=== PATIENT | female | born 1965 | race Caucasian/White ===

== ENCOUNTER 2024-03-13 21:07 | Emergency (ER) | payer BC ==
[2024-03-14] VITALS: TEMP 98.9
[2024-03-14 00:06] VITALS: RESP 18
[2024-03-14] MEDS ORDERED: NORCO 10-325 MG ONE (00:11)
[2024-03-14] MEDS: NORCO 10-325 MG PO ONE (00:12)
--- NOTE | 2024-03-14 02:23 | XRAY ---
CLINICAL HISTORY: fall COMPARISON: None. 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 No acute osseous abnormality is noted. No joint effusion in the suprapatellar bursa. Soft tissues appear unremarkable. IMPRESSION: No definite fracture or dislocation. DISCLAIMER:A subtle bone abnormality or fracture may not be readily apparent on x-rays, thus clinical correlation and further imaging including follow up CT, MRI, or follow up x-rays are advised as needed. Electronically Signed by: Maggi Singh MD. (03/14/2024 02:19:23 EDT)
--- NOTE | 2024-03-14 02:33 | XRAY ---
CLINICAL HISTORY: FALL COMPARISON: None TECHNIQUE: X-ray right humerus AP lateral and oblique views FINDINGS: A comminuted fracture is seen involving the right Humeral head. Reduced bone density Mild osteoarthritis changes Are seen involving the acromioclavicular joint. Soft tissue swelling is noted IMPRESSION: A comminuted fracture is seen involving the right Humeral head. DISCLAIMER:A subtle bone abnormality or fracture may not be readily apparent on x-rays, thus clinical correlation and further imaging including follow up CT, MRI, or follow up x-rays are advised as needed.[facility][1] ER was called at [phone] at 2:25 AM EST, 03/14/2024 and results were verbally communicated to Dr. Valenzuela. Electronically Signed by: Maggi Singh MD. (03/14/2024 02:28:55 EDT)
--- NOTE | 2024-03-14 02:37 | ERPHSYRPT ---
- History of Present Illness Time Seen by Provider: 03/13/24 23:25 Source: patient, family Exam Limitations: no limitations Patient Subjective Stated Complaint: pt reports that at approx 2014 this evening she was going into her house via step that is approx 1.5ft in height, caught the toe of her slide on shoe, resulting in a fall forward landing on her knees. reports no pain with exception of abrasions to bilat legs but states that in trying to catch herself her right shoulder was hyperextended and internally rotated along with her torso being twisted to right. complaint of pain to right shoulder, right scapula, right armpit, right torso, and right medial upper arm. Triage Nursing Assessment: pt brought to room 8 via wheelchair and transfered self onto ED cart with minimal SBA only. pt is alert and oriented times three, able to speak in complete sentences, able to move all extremities (limited to right arm due to pain), and with resp even and unlabored. pt denies hitting or head or any other body part except bilat knees and lower legs (see notation below for sites of abrasions). pt denies losing conciousness, hitting head, being lightheadedness or dizziness before, during, or since fall. complaint of pain to right shoulder, right scapula, right armpit, right torso, and right medial upper arm. states pain is 10/10, constant, ache, sharp, dull, throb that has been continuous since fall. right radial pulse is palpable, no edema noted, right upper extremity with normal color, cap refill, and sensation. denies numbness or tingling. Physician History: Patient is here for right arm pain, 10 out of 10. Patient states that she had a mechanical fall earlier tonight. States that she fell forward through her doorstep. She complains of some right upper back pain, left knee pain. Bilateral lower leg abrasions. Patient is not on a blood thinner, no loss of consciousness. She has not taken any Tylenol or ibuprofen prior to arrival. Pain radiates down the right arm. However pain mostly stops around the elbow. She able to fully move her hand, no wrist pain, other injuries. Allergies/Adverse Reactions: methylprednisolone [From Solu-Medrol] Allergy (Severe, Verified 03/13/24 23:31) Hives sumatriptan [From Imitrex] Allergy (Severe, Verified 03/13/24 23:31) Difficulty Swallowing all antibiotics except amoxicillin Allergy (Severe, Uncoded 03/13/24 23:31) Hives Home Medications: No Reportable Medications [No Reported Medications] 03/13/24 [History] Hx Tetanus, Diphtheria Vaccination/Date Given: Yes Hx Influenza Vaccination/Date Given: No Hx Pneumococcal Vaccination/Date Given: No Immunizations Up to Date: No Travel Risk - International Travel Have you traveled outside of the country in past 3 weeks: No - Emerging Infectious Disease Are you exhibiting symptoms associated with any current EIDs: No - Past Medical History Pertinent Past Medical History: Yes Neurological History: Stroke ENT History: No Pertinent History Cardiac History: No Pertinent History Respiratory History: No Pertinent History Endocrine Medical History: No Pertinent History Musculoskeletal History: No Pertinent History GI Medical History: No Pertinent History History: No Pertinent History Psycho-Social History: No Pertinent History Female Reproductive Disorders: No Pertinent History - Past Surgical History Past Surgical History: Yes Neuro Surgical History: No Pertinent History Cardiac: No Pertinent History Respiratory: No Pertinent History Gastrointestinal: No Pertinent History Genitourinary: No Pertinent History Musculoskeletal: Orthopedic Surgery Female Surgical History: No Pertinent History Other Surgical History: bilat knee meniscus repair - Social History Smoking Status: Former smoker Exposure to second hand smoke: No Drug Use: none Patient Lives Alone: No - Nursing Vital Signs Nursing Vital Signs: Initial Vital Signs Pulse Rate 98 H 03/13/24 23:31 Respiratory Rate 20 03/13/24 23:31 Blood Pressure 156/78 03/13/24 23:31 O2 Sat by Pulse Oximetry 96 03/13/24 23:31 Pain Scale Pain Intensity 2 - Physical Exam SpO2 Interpretation: normal SpO2: 95 Comments: 03/14/24 02:48 Review of Systems Constitutional: Negative for fever. HENT: Negative for congestion. Respiratory: Negative for shortness of breath. Cardiovascular: Negative for chest pain. Gastrointestinal: Negative for abdominal pain. Genitourinary: Negative for dysuria. Musculoskeletal: Negative for back pain. Skin: Negative for rash. Neurological: Negative for headaches. Psychiatric/Behavioral: Negative for behavioral problems. All other systems reviewed and are negative. Physical Exam Vitals signs and nursing note reviewed. Constitutional: Appearance: Patient is well-developed. HENT: Head: Normocephalic and atraumatic. Eyes: Conjunctiva/sclera: Conjunctivae normal. Neck: Musculoskeletal: Normal range of motion. Trachea: No tracheal deviation. Cardiovascular: Rate and Rhythm: Normal rate. Pulmonary: Effort: Pulmonary effort is normal. No respiratory distress. Abdominal: Palpations: Abdomen is soft. Musculoskeletal: General: Right shoulder tenderness, right scapula tenderness, right elbow tenderness. Significantly right shoulder though. Most likely humeral head fracture based on physical exam. No midline C-spine, T-spine, L-spine tenderness. No step-offs no deformities. Abrasions over bilateral lower extremities. However worst abrasions over left knee with some minimal tenderness to the left knee. Plan for x-ray of left knee. Sensation intact, 2+ capillary refill, 2 point tactile discrimination intact. Range of motion and strength due to pain. Compartments are soft, nontender. Overlying skin shows no tenting, bruising, ecchymosis. Distal pulses throughout Skin: General: Skin is warm and dry. Neurological/ Psychiatric: Mental Status: Mental status, behavior, interaction with environment is appropriate for patient's age and condition - Course Nursing assessment & vital signs reviewed: Yes Ordered Tests: Active Orders 24 hr Category Date Time Status CHEST 2 VIEWS (PA AND LAT) Stat Exams 03/14/24 00:57 Completed ELBOW (2 VIEW) Stat Exams 03/14/24 00:57 Completed HUMERUS Stat Exams 03/14/24 00:57 Completed KNEE (3 VIEWS) Stat Exams 03/14/24 00:01 Completed SCAPULA Stat Exams 03/14/24 00:57 Completed SHOULDER Stat Exams 03/14/24 01:00 Completed Medication Summary Discontinued Medications Generic Name Dose Route Start Last Admin Trade Name Kristin PRN Reason Stop Dose Admin Hydrocodone Bitart/Acetaminophen 2 tablet 03/14/24 00:00 03/14/24 00:12 Hydrocodone/Acetamin 10-325 Mg Tablet PO 03/14/24 00:01 2 tablet ONCE ONE Administration Hydrocodone Bitart/Acetaminophen Confirm 03/14/24 00:11 Hydrocodone/Acetamin 10-325 Mg Tablet Administered 03/14/24 00:12 Dose 2 tablet .ROUTE .STK-MED ONE - Progress Progress: improved Progress Note: 03/14/24 02:50 Plan for oral pain medication for patient. X-rays of significantly tender areas. Up-to-date on tetanus shot. 03/14/24 03:11 X-rays only significant for a right humeral head fracture, comminuted. Patient placed in a shoulder sling. Patient will follow-up with orthopedic surgery this week. Appropriate numbers given to patient and patient's sister. Pain significantly improved with oral [place] here. Counseled pt/family regarding: diagnosis, need for follow-up, rad results Medical Desision Making - Diagnostic Testing Radiological Interpretation: Interpreted by me (Right humeral head fracture) - Departure Departure Disposition: Home Clinical Impression: Fracture of humeral head, right, closed Condition: Stable Critical Care Time: No Referrals: DOCTOR,NO FAMILY [Primary Care Provider] - Follow up/PCP as directed Instructions: Preventing falls in adults, Shoulder Fracture Forms: Ortho Referral
--- NOTE | 2024-03-14 02:43 | XRAY ---
CLINICAL HISTORY: FALL COMPARISON: None TECHNIQUE: X-ray scapula showing Y views. FINDINGS: No definite fracture is seen involving the scapula. A comminuted fracture is seen involving the right Humeral head. Reduced bone density Mild osteoarthritis changes Are seen involving the acromioclavicular joint. Soft tissue swelling is noted IMPRESSION: No definite fracture is seen involving the scapula. A comminuted fracture is seen involving the right Humeral head. DISCLAIMER:A subtle bone abnormality or fracture may not be readily apparent on x-rays, thus clinical correlation and further imaging including follow up CT, MRI, or follow up x-rays are advised as needed.[facility] ER was called at [phone] at 2:25 AM EST, 03/14/2024 and results were verbally communicated to Dr. Valenzuela. Electronically Signed by: Maggi Singh MD. (03/14/2024 02:39:43 EDT)
--- NOTE | 2024-03-14 02:45 | XRAY ---
CLINICAL HISTORY: FALL COMPARISON: None. TECHNIQUE: X-ray of the right shoulder joint AP external and internal and lateral views. FINDINGS: A comminuted fracture is seen involving the right Humeral head. Reduced bone density Mild osteoarthritis changes Are seen involving the acromioclavicular joint. Soft tissue swelling is noted IMPRESSION: A comminuted fracture is seen involving the right Humeral head. DISCLAIMER:A subtle bone abnormality or fracture may not be readily apparent on x-rays, thus clinical correlation and further imaging including follow up CT, MRI, or follow up x-rays are advised as needed.[facility] ER was called at [phone] at 2:25 AM EST, 03/14/2024 and results were verbally communicated to Dr. Valenzuela. Electronically Signed by: Maggi Singh MD. (03/14/2024 02:41:46 EDT)
--- NOTE | 2024-03-14 02:47 | XRAY ---
CLINICAL HISTORY: FALL COMPARISON: None TECHNIQUE: X-ray chest AP and lateral view FINDINGS: A radiographic examination of the chest demonstrates clear lungs. Normal configuration of the mediastinum. The tenzin are normal in size and position. The cardiac size is normal. Costophrenic and cardiophrenic angles are clear. Retrocardiac and retrosternal spaces are normal. The bony thorax shows spondylotic changes. Right humerus head fracture; it is reported in shoulder CR. IMPRESSION: No carpiopulmonary or chest wall pathology. Electronically Signed by: Maggi Singh MD. (03/14/2024 02:43:47 EDT)
--- NOTE | 2024-03-14 02:51 | XRAY ---
CLINICAL HISTORY: FALL COMPARISON: None. TECHNIQUE: X-ray of the right elbow AP and lateral views. FINDINGS: Normal bone mineralization. A radiological examination of the elbow shows no lytic or sclerotic lesion. No acute fracture is identified. The cortical margins of the osseous structures are within normal limits. Articular margins are intact. Normal elbow joint space. No elevation of anterior or posterior fat pad sign. No calcifications are seen within soft tissues. IMPRESSION: No acute osseous abnormality is seen. (Disclaimer: "A subtle bone abnormality or fracture may not be readily apparent on x-rays, thus clinical correlation and further imaging including follow-up CT, MRI, or follow-up x-rays are advised as needed"). Electronically Signed by: Maggi Singh MD. (03/14/2024 02:48:06 EDT)
[2024-03-14 03:32] VITALS: BP 144/76; PULSE 95; O2SAT 95
== END 2024-03-14 03:23 | disposition home or self-care (01) ==
LOC: ED 21:07
DX: S42.291A Other displaced fracture of upper end of right humerus, initial encounter for closed fracture (principal); W10.8XXA Fall (on) (from) other stairs and steps, initial encounter; Y92.007 Garden or yard of unspecified non-institutional (private) residence as the place of occurrence of the external cause; M79.601 Pain in right arm; M54.6 Pain in thoracic spine; M25.562 Pain in left knee
CPT/HCPCS: 71046; 73010; 73030; 73060; 73070; 73562; 99283; A9270-GY